=== PATIENT | female | born 1990 | race Caucasian/White ===

== ENCOUNTER 2017-04-14 10:46 | Inpatient (IN) | payer BC ==
[2017-04-14] MEDS ORDERED: METHYLERGONOVINE 0.2 MG INJ IM (12:00)
[2017-04-14] MEDS ORDERED: LIDOCAINE 1% (MPF) 30 ML INJ INJ (12:00)
[2017-04-14] MEDS ORDERED: OXYTOCIN 30 UNITS/LR 500 ML IV (12:00)
[2017-04-14] MEDS ORDERED: IBUPROFEN 600 MG TAB PO (12:00)
[2017-04-14] MEDS ORDERED: MISOPROSTOL 200 MCG TAB PR (12:00)
[2017-04-14] MEDS ORDERED: BUTORPHANOL 2 MG INJ IV (12:00)
[2017-04-14] MEDS ORDERED: CARBOPROST 250 MCG INJ IM (12:00)
[2017-04-14] MEDS: LACTATED RINGER'S 1,000 ML IV ×3 (12:10→20:18)
[2017-04-14 12:55] LABS: ADD MAN DIFF? NO
[2017-04-14 12:57] LABS: BASOPHILS % 0.3 % (0.0-2.0); EOSINOPHILS % 0.2 % (0.0-7.0); HEMATOCRIT 34.7 % (37.0-47.0); HEMOGLOBIN 11.6 g/dl (12.0-16.0); LYMPHOCYTES # 2.2 10^3/ul (0.8-2.9); LYMPHOCYTES % 17.7 % (15.0-51.0); MEAN CORPUSCULAR HEMOGLOBIN 28.8 pg (29.0-33.0); MEAN CORPUSCULAR HGB CONC 33.4 g/dl (32.0-37.0); MEAN CORPUSCULAR VOLUME 86.1 fl (82.0-101.0); MEAN PLATELET VOLUME 11.6 fl (7.4-10.4); MONOCYTE # 0.7 10^3/ul (0.3-0.9); MONOCYTES % 5.8 % (0.0-11.0); NEUTROPHIL # 9.5 10^3/ul (1.6-7.5); NEUTROPHILS % 74.6 % (39.0-77.0); PLATELET COUNT 197 10^3/UL (140-415); RED BLOOD COUNT 4.03 10^6/ul (4.20-5.40); RED CELL DISTRIBUTION WIDTH 14.8 % (11.5-14.5)
[2017-04-14 12:57] LABS: WHITE BLOOD COUNT 12.7 10^3/ul (4.8-10.8)
[2017-04-14 13:23] LABS: INR 0.96; PROTIME 12.9 Sec (11.9-14.9)
[2017-04-14 13:24] LABS: PARTIAL THROMBOPLASTIN TIME 27.9 Sec (25.0-35.0)
[2017-04-14 13:51] LABS: HEPATITIS B SURFACE ANTIGEN NEGATIVE (NEGATIVE)
[2017-04-14 15:10] LABS: RAPID PLASMA REAGIN NONREACTIVE (NR)
[2017-04-14] MEDS: OXYTOCIN 30 UNITS/LR 500 ML IV ×3 (15:13→23:39)
[2017-04-14] MEDS ORDERED: NALOXONE (0.4 MG/ML) INJ IV (20:30)
[2017-04-14] MEDS ORDERED: EPHEDrine SULFATE 50 MG/5 ML SYG IV (20:30)
[2017-04-14] MEDS ORDERED: DIPHENHYDRAMINE 50 MG INJ IV (20:30)
[2017-04-14] MEDS ORDERED: ONDANSETRON 4 MG INJ IV (20:30)
[2017-04-14] MEDS: FENTAnyl 2MCG/ML-ROPIV 0.2% 100 ML BAG EPI (23:37)
[2017-04-15] MEDS ORDERED: DIPHENHYDRAMINE 25 MG CAP PO
[2017-04-15] MEDS ORDERED: WITCH HAZEL/GLYCERIN PAD PR
[2017-04-15] MEDS ORDERED: ZOLPIDEM 5 MG TAB PO
[2017-04-15] MEDS ORDERED: MISOPROSTOL 200 MCG TAB PR
[2017-04-15] MEDS ORDERED: OXYTOCIN 30 UNITS/LR 500 ML IV
[2017-04-15] MEDS ORDERED: ACETAMINOPHEN 325 MG TAB PO
[2017-04-15] MEDS ORDERED: CARBOPROST 250 MCG INJ IM
[2017-04-15] MEDS ORDERED: ONDANSETRON 4 MG INJ IV
[2017-04-15] MEDS ORDERED: METHYLERGONOVINE 0.2 MG INJ IM
[2017-04-15 02:57] LABS: AMPHETAMINE/METHAMPHETAMINE Negative (NEGATIVE); BARBITURATES Negative (NEGATIVE); BENZODIAZEPINES Negative (NEGATIVE); CANNABINOIDS Negative (NEGATIVE); COCAINE Negative (NEGATIVE); OPIATES Negative (NEGATIVE)
[2017-04-15] MEDS: IBUPROFEN 600 MG TAB PO ×4 (05:48→17:31)
[2017-04-15] MEDS: SENNA/DOCUSATE NA (8.6MG/50MG) TAB PO ×2 (09:27→21:00)
[2017-04-15 09:59] LABS: HEMATOCRIT 32.7 % (37.0-47.0); HEMOGLOBIN 10.8 g/dl (12.0-16.0)
[2017-04-15] MEDS: LANOLIN 7 GM TUBE TOP (21:22)
[2017-04-16] MEDS: IBUPROFEN 600 MG TAB PO ×4 (00:13→17:11)
[2017-04-16] MEDS: SENNA/DOCUSATE NA (8.6MG/50MG) TAB PO (09:00)
[2017-04-16] MEDS: INFLUENZA VIRUS VACCINE 0.5 ML SYG IM* (17:11)
== END 2017-04-16 17:35 | disposition home or self-care (01) | DRG 775 ==
LOC: OBT 10:46 → PP1 04-15 01:08 → L-D 10:46 → OBT 11:17 → L-D 11:08
PROVIDERS: Obstetrics & Gynecology
PROC: 10E0XZZ Delivery of Products of Conception, External Approach (ICD-10-PCS; principal; 2017-04-14)
PROC: 3E033VJ Introduction of Other Hormone into Peripheral Vein, Percutaneous Approach (ICD-10-PCS; 2017-04-14)
DX: O48.0 Post-term pregnancy (principal); Z37.0 Single live birth; Z3A.40 40 weeks gestation of pregnancy
CPT/HCPCS: 62319; 80307; 85014; 85018; 85025; 85610; 85730; 86592; 86900; 86901; 87340; 90686